=== PATIENT | female | born 1975 | race Native Hawaiian/Other Pacific Islander ===

== ENCOUNTER 2017-06-28 21:54 | Emergency (ER) | payer OTHER ==
[~2017-06-28] VITALS: Ht 172.7 cm; Wt 61.2 kg
[2017-06-28 22:00] VITALS: TEMP 98.7
[2017-06-28 22:21] LABS: PLATELET COUNT 298 K/uL (152-353)
[2017-06-28 22:25] LABS: POTASSIUM 3.6 mmol/L (3.6-5.2)
[2017-06-28 23:48] VITALS: BP 109/70
== END 2017-06-28 23:54 | disposition home or self-care (01) ==
LOC: ED 21:54
DX: K52.3 Indeterminate colitis (principal); A09 Infectious gastroenteritis and colitis, unspecified
CPT/HCPCS: 36415; 80053; 85027; 96374; 96375; 99284; J2175; J2270; J2405; J2550; Q9963

== ENCOUNTER 2021-03-11 09:36 | Outpatient (CLI) | payer BC | END 2021-03-11 21:20 | disposition home or self-care (01) | LOC: RAD 09:36 | PROVIDERS: ATTEND Nurse Practitioner Family | DX: R06.02 Shortness of breath (principal) ==

== ENCOUNTER 2022-12-15 08:49 | Outpatient (CLI) | payer BC | END 2022-12-15 19:19 | disposition home or self-care (01) | LOC: CT 08:49 | PROVIDERS: ATTEND Registered Nurse | DX: R10.84 Generalized abdominal pain (principal) | CPT/HCPCS: Q9963 ==